=== PATIENT | male | born 1965 | race Two or more races ===

== ENCOUNTER 2017-05-09 10:37 | Emergency (ER) | payer MEDICAID ==
[2017-05-09 10:43] VITALS: BP 137/89; PULSE 86; RESP 18; TEMP 98.6; O2SAT 99
== END 2017-05-09 10:57 | disposition left against medical advice (07) ==
LOC: EEVIPCON 10:37
DX: Z53.21 Procedure and treatment not carried out due to patient leaving prior to being seen by health care provider (principal)

== ENCOUNTER 2017-05-11 14:42 | Emergency (ER) | payer MEDICAID ==
[2017-05-11 14:55] VITALS: RESP 18; TEMP 98.2
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
[2017-05-11 15:47] LABS: % IMMATURE GRANULYOCYTES 0.9 % (0.0-1.1); ABSOLUTE IMMATURE GRANULOCYTES 0.04 10^3/uL (0.00-0.10); ADD DIFF? NO; ADD MORPH? NO; ADD SCAN? NO; ATYPICAL LYMPHOCYTE FLAG 40 (0-99); FRAGMENT RBC FLAG 0 (0-99); HEMATOCRIT 35.9 % (40.0-51.0); HEMOGLOBIN 11.8 g/dL (13.7-17.5); LEFT SHIFT FLG 0 (0-99); LIPEMIA HEMOLYSIS FLAG 80 (0-99); MEAN CELL HEMOGLOBIN 35.2 pg (27.9-34.1); MEAN CELL HEMOGLOBIN CONCENTR. 32.9 g/dL (32.4-36.7); MEAN CELL VOLUME 107.2 fL (81.5-99.8); MEAN PLATELET VOLUME 8.6 fL (8.7-11.7); PLATELET CLUMPS FLAG 0 (0-99); PLATELET COUNT 420 10^3/uL (150-400); RED BLOOD CELL COUNT 3.35 10^6/uL (4.40-6.38)
[2017-05-11 16:06] LABS: ALANINE AMINOTRANSFERASE 71 IU/L (21-72); ALBUMIN 4.6 g/dL (3.5-5.0); ALKALINE PHOSPHATASE 67 IU/L (38-126); ANION GAP 17 mEq/L (8-16); ASPARTATE AMINOTRANSFERASE 112 IU/L (17-59); BILIRUBIN,TOTAL 0.7 mg/dL (0.1-1.4); BILIRUBIN-CONJUGATED 0.4 mg/dL (0.0-0.5); BILIRUBIN-UNCONJUGATED 0.3 mg/dL (0.0-1.1); CALCIUM 9.4 mg/dL (8.5-10.4); CARBON DIOXIDE 19 mEq/l (22-31); CHLORIDE 110 mEq/L (97-110); GLOMERULAR FILTRATION RATE > 60; GLUCOSE 83 mg/dL (70-100); POTASSIUM 3.8 mEq/L (3.5-5.2); SODIUM 146 mEq/L (134-144); TOTAL PROTEIN 9.2 g/dL (6.3-8.2)
[2017-05-11] MEDS ORDERED: IOPAMIDOL (ISOVUE-300) 100 ML BTL ONE (16:51)
[2017-05-11 16:58] VITALS: BP 117/82; PULSE 71; O2SAT 94
== END 2017-05-11 16:57 | disposition home or self-care (01) ==
LOC: EDUNIT#
DX: R10.84 Generalized abdominal pain (principal); F10.120 Alcohol abuse with intoxication, uncomplicated; F17.200 Nicotine dependence, unspecified, uncomplicated; Z85.038 Personal history of other malignant neoplasm of large intestine
CPT/HCPCS: Q9967

== ENCOUNTER 2017-05-13 07:20 | Emergency (ER) | payer MEDICAID ==
[2017-05-13 07:30] VITALS: RESP 16; TEMP 98.1
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
[2017-05-13 10:41] VITALS: BP 123/89; PULSE 54; O2SAT 93
== END 2017-05-13 10:41 | disposition home or self-care (01) ==
LOC: EDUNIT#
DX: Z43.3 Encounter for attention to colostomy (principal); F17.200 Nicotine dependence, unspecified, uncomplicated; Z85.038 Personal history of other malignant neoplasm of large intestine